=== PATIENT | female | born 1965 ===

== ENCOUNTER 2018-05-20 23:57 | Emergency (ER) | payer MEDICAID, OTHER ==
[2018-05-21 00:02] VITALS: BP 165/105; PULSE 100; RESP 16; TEMP 98; O2SAT 100
--- NOTE | 2018-05-21 01:19 | ED PDOC ---
HPI: Psych/Substance Abuse Time Seen by Provider: 05/21/18 00:20 Chief Complaint (Nursing): Psychiatric Evaluation Chief Complaint (Provider): Psychiatric Evaluation History Per: Patient, Family (daughter) History/Exam Limitations: no limitations Associated Symptoms: Depression Additional Complaint(s): 53 y/o female with history of depression and anxiety presenting to the ED for psychiatric evaluation. Patient is from [facility] and has been here for x2 months visiting her daughter. Patient reports she did not bring her psychiatric medications and is unaware of the names. Per daughter patient appears to be increasingly depressed and is unable to sleep. Patient denies homicidal or suicidal ideation as well as auditory or visual hallucinations. Patient and her daughter's main concern is to see a psychiatrist and get some sleep aide. Past Medical History Reviewed: Historical Data, Nursing Documentation, Vital Signs Vital Signs: Last Vital Signs Temp 98 F 05/20/18 23:59 Pulse 100 H 05/20/18 23:59 Resp 16 05/20/18 23:59 BP 165/105 H 05/20/18 23:59 Pulse Ox 100 05/20/18 23:59 - Medical History PMH: Anxiety, Depression, HTN - Surgical History Surgical History: Other surgeries: Tubal Ligation, Hysterectomy - Family History Family History: States: Unknown Family Hx - Social History Current smoker - smoking cessation education provided: No Alcohol: None Drugs: Denies - Home Medications Home Medications: Ambulatory Orders Medication Instructions Recorded hydrOXYzine Pamoate [Vistaril] 25 mg PO HS PRN #7 cap 05/21/18 - Allergies Allergies/Adverse Reactions: Allergies Allergy/AdvReac Type Severity Reaction Status Date / Time Penicillins Allergy RASH Verified 05/21/18 00:03 Review of Systems ROS Statement: Except As Marked, All Systems Reviewed And Found Negative Psych: Positive for: Depression. Negative for: Psychosis, Suicidal ideation Physical Exam - Reviewed Nursing Documentation Reviewed: Yes Vital Signs Reviewed: Yes - Physical Exam Appears: Positive for: Well, Non-toxic, No Acute Distress Head Exam: Positive for: ATRAUMATIC, NORMAL INSPECTION, NORMOCEPHALIC Skin: Positive for: Normal Color, Warm, DRY Eye Exam: Positive for: EOMI, Normal appearance, PERRL ENT: Positive for: Normal ENT Inspection Neck: Positive for: Normal, Painless ROM Cardiovascular/Chest: Positive for: Regular Rate, Rhythm. Negative for: Murmur Respiratory: Positive for: Normal Breath Sounds. Negative for: Respiratory Distress Gastrointestinal/Abdominal: Positive for: Normal Exam, Soft. Negative for: Tenderness Back: Positive for: Normal Inspection Extremity: Positive for: Normal ROM. Negative for: Pedal Edema, Deformity Neurological/Psych: Positive for: Awake, Alert, Normal Tone, Mood/Affect (flat). Negative for: Motor/Sensory Deficits - ECG O2 Sat by Pulse Oximetry: 100 (RA) Pulse Ox Interpretation: Normal Medical Decision Making Medical Decision Making: Time: 00:20 Impression: 53 y/o with insomnia in setting of depression Initial Plan: * Crisis evaluation 01:24 Patient was cleared by crisis. Diagnosis is depression. Will be discharged home. Scribe Attestation: Documented by Dion Horner, acting as a scribe Maria L Gamez MD. Provider Scribe Attestation: All medical record entries made by the Scribe were at my direction and personally dictated by me. I have reviewed the chart and agree that the record accurately reflects my personal performance of the history, physical exam, medical decision making, and the department course for this patient. I have also personally directed, reviewed, and agree with the discharge instructions and disposition. Disposition - Clinical Impression Clinical Impression: Depression, Insomnia - Patient ED Disposition Is Patient to be Admitted: No - Disposition Disposition: Routine/Home Disposition Time: 01:24 Condition: STABLE Additional Instructions: ARMIN RODRIGUEZ, thank you for letting us take care of you today. Your provider was Wyatt Gamez MD and you were treated for PSYCH EVAL. The emergency medical care you received today was directed at your acute symptoms. If you were prescribed any medication, please fill it and take as directed. It may take several days for your symptoms to resolve. Return to the Emergency Department if your symptoms worsen, do not improve, or if you have any other problems. Please contact your doctor or call one of the physicians/clinics you have been referred to that are listed on the Patient Visit Information form that is included in your discharge packet. Bring any paperwork you were given at discharge with you along with any medications you are taking to your follow up visit. Our treatment cannot replace ongoing medical care by a primary care provider outside of the emergency department. Thank you for allowing the [facility] team to be part of your care today. If you had an X-Ray or CT scan: A Radiologist will review the ED reading if any change in treatment is needed we will contact you. If you had a blood, urine, or wound culture: It will take several days for the results, if any change in treatment is needed we will contact you. If you had an STI test: It will take 48 hours for the results. Please call after 1 week if you have not heard back. Prescriptions: hydrOXYzine Pamoate [Vistaril] 25 mg PO HS PRN #7 cap PRN Reason: for insomnia Instructions: Depression Forms: [employer] (Serbian) Print Language: ESTONIAN
== END 2018-05-21 01:50 | disposition home or self-care (01) ==
LOC: H.ER 23:57
DX: F32.9 Major depressive disorder, single episode, unspecified (principal); I10 Essential (primary) hypertension; Z88.0 Allergy status to penicillin; Z86.59 Personal history of other mental and behavioral disorders; Z00.8 Encounter for other general examination
CPT/HCPCS: 99282; Q0177

== ENCOUNTER 2018-05-26 20:32 | Inpatient (IN) | payer MEDICAID, OTHER ==
--- NOTE | 2018-05-26 21:10 | ED PDOC ---
HPI: Psych/Substance Abuse Time Seen by Provider: 05/26/18 21:00 Chief Complaint (Nursing): Psychiatric Evaluation Chief Complaint (Provider): psychiatric evaluation History Per: Family History/Exam Limitations: no limitations Onset/Duration Of Symptoms: Days Current Symptoms Are (Timing): Still Present Associated Symptoms: denies: Suicidal Thoughts Additional Complaint(s): Chrissy Villatoro is a 53 year old female, with a past medical history of psychiatric illness, who presents to the emergency department accompanied by family members for psychiatric evaluation. Family members report that patient arrived from [facility] x2 months ago where she was receiving a treatment of Altavista Carbonate 200mg, Lamotrigine 100mg and Olanzapine 10mg. Family states that patient forgot her medication at home and hasn't been sleeping for x2 days. Patient was seen here last week and was given Benadryl but with no benefit. Patient has a scheduled appointment with psychiatrist at [facility] in [place] on June 04 but family is requesting a medication to help her sleep due to concern of child at home. Patient denies any suicidal or homicidal ideation. No further medical complaints. PMD: None provided. Past Medical History Reviewed: Historical Data, Nursing Documentation, Vital Signs Vital Signs: Last Vital Signs Temp 98.7 F 05/26/18 20:33 Pulse 89 05/26/18 20:33 Resp 16 05/26/18 20:33 BP 150/95 H 05/26/18 20:33 Pulse Ox 100 05/26/18 20:33 - Medical History PMH: Anxiety, Depression, HTN Denies: Diabetes, Hepatitis, HIV, Seizures, Sexually Transmitted Disease - Surgical History Surgical History: - Family History Family History: States: Unknown Family Hx - Living Arrangements Living Arrangements: With Family - Home Medications Home Medications: Ambulatory Orders Medication Instructions Recorded hydrOXYzine Pamoate [Vistaril] 25 mg PO HS PRN #7 cap 05/21/18 - Allergies Allergies/Adverse Reactions: Allergies Allergy/AdvReac Type Severity Reaction Status Date / Time Penicillins Allergy RASH Verified 05/21/18 00:03 Review of Systems ROS Statement: Except As Marked, All Systems Reviewed And Found Negative Psych: Positive for: Other (insomnia). Negative for: Suicidal ideation (or homicidal ideation) Physical Exam - Reviewed Nursing Documentation Reviewed: Yes Vital Signs Reviewed: Yes - Physical Exam Appears: Positive for: No Acute Distress Head Exam: Positive for: ATRAUMATIC, NORMAL INSPECTION, NORMOCEPHALIC Skin: Positive for: Normal Color, Warm, Dry Eye Exam: Positive for: Normal appearance, EOMI, PERRL Neck: Positive for: Normal, Painless ROM Cardiovascular/Chest: Positive for: Regular Rate, Rhythm. Negative for: Murmur Respiratory: Positive for: Normal Breath Sounds. Negative for: Respiratory Distress Gastrointestinal/Abdominal: Positive for: Normal Exam, Soft. Negative for: Tenderness Back: Positive for: Normal Inspection Extremity: Positive for: Normal ROM (upper and lower extremities). Negative for: Deformity Neurological/Psych: Positive for: Awake, Alert, Normal Tone, Oriented - ECG O2 Sat by Pulse Oximetry: 100 (RA) Pulse Ox Interpretation: Normal - Progress ED Course And Treament: SEEN BY CRISIS D/W HERNAN VAZQUEZ ADMIT TO DR. GONZALEZ DIAGNOSIS BIPOLAR DISORDER. Medical Decision Making Medical Decision Making: Time: 21:00 Initial Impression: Psychiatric evaluation Initial Plan: --Reevaluation Scribe Attestation: Documented by Sumanth Man, acting as a scribe for Jaqueline Mane PA-C. Provider Scribe Attestation: All medical record entries made by the Scribe were at my direction and personally dictated by me. I have reviewed the chart and agree that the record accurately reflects my personal performance of the history, physical exam, medical decision making, and the department course for this patient. I have also personally directed, reviewed, and agree with the discharge instructions and disposition. Disposition - Clinical Impression Clinical Impression: Bipolar disorder - Patient ED Disposition Is Patient to be Admitted: Yes - Disposition Disposition Time: 23:17 Condition: FAIR Instructions: Bipolar Disorder (DC)
--- NOTE | 2018-05-27 00:06 | ED PDOC ---
- Laboratory Results Result Diagrams: 05/27/18 00:10 05/27/18 00:10 - ECG O2 Sat by Pulse Oximetry: 100 (RA) Medical Decision Making Medical Decision Making: Patient endorsed to me by AXEL Mane pending labs results. WBCs 14K, U/A: LE large, slightly cloudy, nitrate negative, WBCs 3K, patient denies dysuria, urinary frequency or abdominal pain. Macrobid 100mg PO x 1 ordered Pt is medically stable for psychiatric admission. Disposition Discussed With : Elkin Mosher - Clinical Impression Clinical Impression: Bipolar disorder - POA Present On Arrival: None - Disposition Disposition: Admitted as In-Patient Disposition Time: 01:15 Condition: FAIR
[2018-05-27 00:19] LABS: BASO # 0.1 K/uL (0.0-0.2); BASO % 0.4 % (0.0-2.0); EOS # 0.1 K/uL (0.0-0.7); EOS % 0.7 % (0.0-4.0); HEMOGLOBIN 13.9 g/dL (12.0-16.0); LYMPH # 3.1 K/uL (1.0-4.3); LYMPH % 20.9 % (20.0-40.0); MEAN CORPUSCULAR HEMOGLOBIN 31.4 pg (27.0-31.0); MEAN CORPUSCULAR HGB CONC 33.8 g/dL (33.0-37.0); MEAN PLATELET VOLUME 7.7 fl (7.2-11.7); MONO # 0.8 K/uL (0.0-0.8); MONO % 5.7 % (0.0-10.0); NEUT # 10.6 K/uL (1.8-7.0); NEUT % 72.3 % (50.0-75.0); NRBC % 0.1 % (0.0-0.0); RBC 4.43 Mil/uL (3.80-5.20); RED CELL DISTRIBUTION WIDTH 12.5 % (11.5-14.5); WHITE BLOOD COUNT 14.7 K/uL (4.8-10.8)
[2018-05-27 00:23] LABS: SQUAMOUS EPITHIAL 3 /hpf (0-5); URINE BACTERIA RARE (<OCC); URINE BILIRUBIN NEGATIVE (NEGATIVE); URINE BLOOD NEGATIVE (NEGATIVE); URINE CLARITY SLIGHTY-CLOUDY (Clear); URINE COLOR YELLOW (YELLOW); URINE GLUCOSE (UA) NEG (NEGATIVE); URINE LEUKOCYTE ESTERASE LARGE Leu/uL (Negative); URINE PROTEIN NEGATIVE (NEGATIVE); URINE UROBILINOGEN 0.2-1.0 mg/dL (0.2-1.0)
[2018-05-27 00:38] LABS: BARBITURATES, UR NEGATIVE (NEGATIVE); BENZODIAZEPINES, UR NEGATIVE (NEGATIVE); OPIATES, UR NEGATIVE (NEGATIVE); PHENCYCLIDINE, UR NEGATIVE (NEGATIVE)
[2018-05-27 00:40] LABS: ALB/GLOB RATIO 1.3 (1.0-2.1); ALBUMIN 4.9 g/dL (3.5-5.0); ALT/SGPT 27 U/L (9-52); AST/SGOT 24 U/L (14-36); BLOOD UREA NITROGEN 13 mg/dl (7-17); CALCIUM 10.5 mg/dL (8.4-10.2); GFR NON-AFRICAN AMERICAN > 60
[2018-05-27] MEDS ORDERED: Magnesium Hydroxide Susp 30 ml UD PO PRN (03:02)
[2018-05-27] MEDS ORDERED: DiphenhydrAMINE 50 mg/ml Inj IM PRN (03:02)
--- NOTE | 2018-05-27 03:52 | PCM.BM ---
<Anna Felder P - Last Filed: 05/27/18 03:54> Treatment Plan Problems - Problems identified on initial assessmt Anxiety Date Initiated: 05/27/18 Time Initiated: 03:51 Assessment reference: NA Status: Active Altered Sleep Patterns Date Initiated: 05/27/18 Time Initiated: 03:51 Assessment reference: NA Status: Active Medication non adherence Date Initiated: 05/27/18 Time Initiated: 03:51 Assessment reference: NA Status: Active Treatment assets and liabiliti Patient Assests: ADL independent, physically healthy, negotiates basic needs, cognitively intact Patient Liabilities: medical problems (med noncompliance), language/speech, other (med non) - Milieu Protocol Maintain good personal hygiene: daily Encourage regular showers, daily Remind patient to perform daily oral care, daily Assist patient to perform ADL's Conduct patient checks and document Observation sheet: Q15 minutes Maintain personal safety: every shift Educate patient to report safety concerns to staff, every shift Monitor environment for contraband/sharps Medication safety: Monitor for expected outcome, potential side effects: every shift, Assess barriers to learning: every shift, Assess readiness for medication education: every shift <Natasha Quintanilla - Last Filed: 05/30/18 13:33> Treatment assets and liabiliti Patient Assests: adapts well, cooperative, educated (Pt. reports having a [employer] education. Pt. reports discontinuing studies to help provide for family.), resourceful, self-reliant, good support system (Pt. reports having a loving and supportive relationship with children. Pt. reports occasional communication with siblings in [place] ( 4 sisters ; 3 brothers).), negotiates basic needs, good past tx response, cognitively intact Patient Liabilities: language/speech (Pt. primarily hong konger speaking ), other Family Contact Family involvement: Family/SO is involved Family contact: Patient agrees to contact, Family has been contacted by patient, Telephone contact initiated by staff Family contact name: Heather(daughter)([phone]) Family contact comment: Billiard Player placed call to pts daughter to discuss pts presentation on 3NP, collect further collateral, and address any family concerns. Billiard Player provided clinical updates regarding pts presentation of 3NP this morning (thought blocking, paranoia, confusion, and initial refusal of medications). Pts daughter reported having spoken to earlier today and that pt. was able to explain to daughter that she needed to be given medication this morning and was able to carry out a short conversation. Billiard Player provided psychoeducation regarding nature of tx provided on 3NP and importance of adherence with appropriate aftercare. Pts daughter expressed understanding of the above and denied having other concerns. Billiard Player to continue providing clinical updates regarding pts progress and discharge planning. - Goals for Treatment Patient goals for treatment: Patient to continue stabilization on 3NP through medication management and group/supportive therapy to address sxs of depression as exhibited by thought blocking, sleep disturbances, and paranoia. Patient to be encouraged to attend groups regularly to promote self-awareness, reality testing, and improve insight, compliance, coping skills and self-esteem. Patient to be provided with referral for appropriate level of aftercare to reduce risk of future hospitalizations and ensure safety in the community. Pt. identified improvement in sleep and being discharged home as primary tx goals. Discharge/Continuing Care - Education Needs Education Needs: Family Medication, Family Diagnosis/Disease Process, Family Community resources, Family Aftercare Safety Plan, Patient Medication, Patient Diagnosis/Disease Process, Patient Coping Skills, Patient Community resources, Patient Aftercare Safety Plan - Discharge Discharge Criteria: Tolerates medication w/o severe side effects, Free of Suicidal thoughts, Free of paranoid thoughts, Free of agitation, Normal sleep pattern, Ability to care for self, Reduction of target symptoms (thought blocking) Discharge to:: Home, With Family - Treatment Team Participation Patient/Family/SO Statement: 05/30/18 13:38 Pt. attended tx team this morning to discuss progress on 3NP and tx goals. Pt. presented with significantly less thought blocking and was better able to engage in discussion with tx team. Affect more congruent to mood, although pt. smiles inappropriately at times. Pt. presents as internally preoccupied but denies AH/VH/delusions. Pt. reports improvement in sxs since admission as exhibited by improvement in energy/motivation/sleep. Pt. continues to deny having experienced sxs of depression or anxiety prior to admission, identifying reason for hospitalization as lack of sleep. Pt. suspicious on approach and guarded but to a lesser degree than upon admission. Pt. discharged focused, requesting to be discharged today. Psychoeducation regarding importance or proper stabilization and adherence with aftercare provided. Pt. superficially motivated for tx and ambivalent towards aftercare but receptive to feedback. Recommended medication changes discussed at length. Pt. agreeable. Insight into precursors to hospitalization, illness, and need for tx remains limited. Pt. visible on 3NP and observed socializing appropriately with select peers. Staff availability e mphasized. Pt. denied SI/HI, was able to contract for safety on 3NP, and expressed feeling safe on 3NP. Discussed with Family/SO: Yes Was Patient/Family/SO present at Treatment Team Meeting: Yes <Vel Mclean - Last Filed: 05/30/18 14:14> - Diagnosis (1) Bipolar disorder Status: Acute Interventions: 05/30/18 14:14 mood stabilizer/ risperidone (2) UTI (urinary tract infection) Status: Acute Interventions: 05/30/18 14:14 anti biotics/ internal medicine consult
--- NOTE | 2018-05-27 11:38 | RAD ---
Date of service: 05/26/2018 HISTORY: ROUTINE COMPARISON: No prior. TECHNIQUE: 1 view obtained. FINDINGS: LUNGS: No active pulmonary disease. PLEURA: No significant pleural effusion identified, no pneumothorax apparent. CARDIOVASCULAR: No aortic atherosclerotic calcification present. Normal cardiac size. No pulmonary vascular congestion. OSSEOUS STRUCTURES: No significant abnormalities. VISUALIZED UPPER ABDOMEN: Normal. OTHER FINDINGS: None. IMPRESSION: No active disease.
--- NOTE | 2018-05-27 11:49 | CP.PCM.CON ---
History of Present Illness - History of Present Illness History of Present Illness: 53 yo female with psyche history admitted to psyche unit because worsening depression. Review of Systems - Review of Systems All systems: reviewed and no additional remarkable complaints except (aside from those mentioned above, 12 point system review were negative by me) Past Patient History - Tetanus Immunizations Tetanus Immunization: Unknown - Past Social History Smoking Status: Never Smoked Chewing Tobacco Use: No Cigar Use: No Alcohol: None Drugs: Denies - CARDIAC Hx Hypertension: Yes - PULMONARY Hx Tuberculosis: No - NEUROLOGICAL HX Cerebrovascular Accident: No Hx Seizures: No - HEMATOLOGICAL/ONCOLOGICAL Hx Cancer: No Hx Human Immunodeficiency Virus (HIV): No - GENITOURINARY/GYNECOLOGICAL Hx Sexually Transmitted Disorders: No - PSYCHIATRIC Hx Bipolar Disorder: Yes (per report) Hx Substance Use: No - SURGICAL HISTORY Hx Surgeries: Yes Hx Section: Yes - ANESTHESIA Hx Anesthesia: Yes Hx Anesthesia Reactions: No Hx Malignant Hyperthermia: No Has any member of the family had a problem w/ anesthesia?: No Meds Allergies/Adverse Reactions: Allergies Allergy/AdvReac Type Severity Reaction Status Date / Time Penicillins Allergy RASH Verified 05/21/18 00:03 - Medications Medications: Current Medications Acetaminophen (Tylenol 325mg Tab) 650 mg PO Q4 PRN PRN Reason: pain level 4-7 Al Hydrox/Mg Hydrox/Simethicone (Maalox Plus 30 Ml) 30 ml PO Q4 PRN PRN Reason: Dyspepsia Diphenhydramine HCl (Benadryl) 50 mg IM Q6 PRN PRN Reason: Extrapyramidal S/S Unable PO Diphenhydramine HCl (Benadryl) 50 mg PO Q6 PRN PRN Reason: Extrapyramidal Symptoms Diphenhydramine HCl (Benadryl) 50 mg PO HS PRN PRN Reason: Sleep Haloperidol (Haldol) 5 mg PO Q4 PRN PRN Reason: Agitation Haloperidol Lactate (Haldol) 5 mg IM Q4 PRN PRN Reason: Agitation, Unable to Take PO Lorazepam (Ativan) 2 mg IM Q6H PRN PRN Reason: Anxiety/Agitation,Unable PO Lorazepam (Ativan) 1 mg PO Q6H PRN PRN Reason: Anxiety/Agitation Magnesium Hydroxide (Milk Of Magnesia) 30 ml PO HS PRN PRN Reason: Constipation Physical Exam - Constitutional Appears: No Acute Distress - Head Exam Head Exam: ATRAUMATIC - Eye Exam Eye Exam: absent: Scleral icterus - ENT Exam ENT Exam: Mucous Membranes Moist - Neck Exam Neck exam: Negative for: Meningismus - Respiratory Exam Respiratory Exam: absent: Rales, Rhonchi, Wheezes, Respiratory Distress - Cardiovascular Exam Cardiovascular Exam: REGULAR RHYTHM, +S1, +S2 - GI/Abdominal Exam GI & Abdominal Exam: Soft. absent: Tenderness - Rectal Exam Rectal Exam: Deferred - Neurological Exam Neurological exam: Alert, Oriented x3 - Psychiatric Exam Psychiatric exam: Normal Affect - Skin Skin Exam: Dry, Intact Results - Vital Signs Recent Vital Signs: Last Vital Signs Temp 98.2 F 05/27/18 09:00 Pulse 97 H 05/27/18 09:00 Resp 18 05/27/18 09:00 BP 155/102 H 05/27/18 09:00 Pulse Ox 100 05/27/18 07:13 - Labs Result Diagrams: 05/27/18 00:10 05/27/18 00:10 Labs: Laboratory Results - last 24 hr 05/27/18 05/27/18 05/27/18 00:10 00:10 00:10 WBC 14.7 H RBC 4.43 Hgb 13.9 Hct 41.2 MCV 93.0 MCH 31.4 H MCHC 33.8 RDW 12.5 Plt Count 394 MPV 7.7 Neut % (Auto) 72.3 Lymph % (Auto) 20.9 Glynn % (Auto) 5.7 Eos % (Auto) 0.7 Baso % (Auto) 0.4 Neut # (Auto) 10.6 H Lymph # (Auto) 3.1 Glynn # (Auto) 0.8 Eos # (Auto) 0.1 Baso # (Auto) 0.1 Sodium 142 Potassium 4.5 Chloride 101 Carbon Dioxide 27 Anion Gap 19 BUN 13 Creatinine 0.7 Est GFR ( Amer) > 60 Est GFR (Non-Af Amer) > 60 Random Glucose 112 H Calcium 10.5 H Total Bilirubin 0.4 AST 24 ALT 27 Alkaline Phosphatase 116 Total Protein 8.9 H Albumin 4.9 Globulin 3.9 Albumin/Globulin Ratio 1.3 Urine Color Urine Clarity Urine pH Ur Specific [place] Urine Protein Urine Glucose (UA) Urine Ketones Urine Blood Urine Nitrate Urine Bilirubin Urine Urobilinogen Ur Leukocyte Esterase Urine RBC (Auto) Urine Microscopic WBC Ur Squamous Epith Cells Urine Bacteria Urine Opiates Screen Negative Urine Methadone Screen Negative Ur Barbiturates Screen Negative Ur Phencyclidine Scrn Negative Ur Amphetamines Screen Negative U Benzodiazepines Scrn Negative U Oth Cocaine Metabols Negative U Cannabinoids Screen Negative Alcohol, Quantitative < 10 05/27/18 00:10 WBC RBC Hgb Hct MCV MCH MCHC RDW Plt Count MPV Neut % (Auto) Lymph % (Auto) Glynn % (Auto) Eos % (Auto) Baso % (Auto) Neut # (Auto) Lymph # (Auto) Glynn # (Auto) Eos # (Auto) Baso # (Auto) Sodium Potassium Chloride Carbon Dioxide Anion Gap BUN Creatinine Est GFR ( Amer) Est GFR (Non-Af Amer) Random Glucose Calcium Total Bilirubin AST ALT Alkaline Phosphatase Total Protein Albumin Globulin Albumin/Globulin Ratio Urine Color Yellow Urine Clarity Slighty-cloudy Urine pH 6.0 Ur Specific [place] 1.019 Urine Protein Negative Urine Glucose (UA) Neg Urine Ketones Negative Urine Blood Negative Urine Nitrate Negative Urine Bilirubin Negative Urine Urobilinogen 0.2-1.0 Ur Leukocyte Esterase Large Urine RBC (Auto) 1 Urine Microscopic WBC 3 Ur Squamous Epith Cells 3 Urine Bacteria Rare Urine Opiates Screen Urine Methadone Screen Ur Barbiturates Screen Ur Phencyclidine Scrn Ur Amphetamines Screen U Benzodiazepines Scrn U Oth Cocaine Metabols U Cannabinoids Screen Alcohol, Quantitative Assessment & Plan (1) Depression Status: Acute Comment: psyche is managing (2) UTI (urinary tract infection) Status: Acute Comment: urine C&S. Macrobid 100mg PO BID
--- NOTE | 2018-05-27 14:41 | PCM.PSYCH ---
Initial Psychiatric Evaluation - Initial Psychiatric Evaluation Type of Admission: Voluntary Chief Complaint (in patient's own words): may family brought to the hospital because for not sleeping Patient's Reaction to Hospitalization: signed in voluntary History of Present Illness and Precipitating Events: pt reportedly was living in youngest daughter reportedly family called ems because pt has not slept in 3 days reportedly was pacing at home became upset reported broke door does not recall why. [place]3 [place], [place] reportedly was diagnosed with ? bipolar. does not recall medication, does not admit to ever being inpt, denies suicidal ideation/attempts. reportedly pt was walking back and forth at [facility] home, reportedly was scaring daughter's children (pacing) Current Medications: Active Medications Generic Name Dose Route Start Last Admin Trade Name Freq PRN Reason Stop Dose Admin Acetaminophen 650 mg 05/27/18 03:02 Tylenol 325mg Tab PO Q4 PRN pain level 4-7 Al Hydrox/Mg Hydrox/Simethicone 30 ml 05/27/18 03:02 Maalox Plus 30 Ml PO Q4 PRN Dyspepsia Diphenhydramine HCl 50 mg 05/27/18 03:02 Benadryl IM Q6 PRN Extrapyramidal S/S Unable PO Diphenhydramine HCl 50 mg 05/27/18 03:02 Benadryl PO Q6 PRN Extrapyramidal Symptoms Diphenhydramine HCl 50 mg 05/27/18 03:05 Benadryl PO HS PRN Sleep Haloperidol 5 mg 05/27/18 03:02 Haldol PO Q4 PRN Agitation Haloperidol Lactate 5 mg 05/27/18 03:02 Haldol IM Q4 PRN Agitation, Unable to Take PO Lorazepam 2 mg 05/27/18 03:02 Ativan IM Q6H PRN Anxiety/Agitation,Unable PO Lorazepam 1 mg 05/27/18 03:02 Ativan PO Q6H PRN Anxiety/Agitation Magnesium Hydroxide 30 ml 05/27/18 03:02 Milk Of Magnesia PO HS PRN Constipation Nitrofurantoin Macrocrystals 100 mg 05/27/18 21:00 Macrobid PO Q12 JAMMIE Protocol Past Psychiatric History - Past Psychiatric History Prior Professional Help: opd in [facility] [place] defers recalling treatment History of Abuse: defers History of ETOH/Drug Use: defers History of Family Illness: defers Pertinent Medical Hx (Current Medical&Sleep Prob, Allergies): Allergies Allergy/AdvReac Type Severity Reaction Status Date / Time Penicillins Allergy RASH Verified 05/21/18 00:03 hydrOXYzine Pamoate [Vistaril] 25 mg PO HS PRN #7 cap 05/21/18 Home Med 0.5 tab PO DAILY 05/27/18 Review of Systems - Psychiatric Psychiatric: Abnormal Sleep Pattern, Irritability Mental Status Examination - Personal Presentation Personal Presentation: Looks older than stated age - Affect Affect: Constricted - Motor Activity Motor Activity: Psychomotor Retardation - Reliability in Providing Information Reliability in Providing Information: Fair - Speech Additional comments: under productive unless prompted - Mood Mood: Anxious - Formal Thought Process Formal Thought Process: No Impairment - Cognitive Functions Orientation: Person, Place, Situation Sensorium: Alert Attention/Concentration: Easily distracted Judgement: Imparied, as evidence by: Other Memory: Recent intact, as evidence by: Other - Risk Risk: Diminished functioning - Strength & Assets Inventory Additional comments: pt gives minimal detail but with prompting - Limitations Additional comments: speaks welsh, decreased insight DSM 5 DX - DSM 5 DSM 5 Diagnosis: bipolar I most recent episode manic with behavior changes - Recommended/Plan of Treatment Treatment Recommendations and Plan of Treatment: inpt adm per attending md prns per unit protocol vital signs and clinical observation per protocol and per clinical status hospitalist consult in welsh review seroquel possible shakes tremors increased weight sugar cholesteral possible suicidal ideaions pt verbally agreeable will start seroquel 25mg po hs team to obtain corroborative information am discharge planning in progess Projected ELOS: 5-7 days Prognosis: guarded Discharge Plan and Discharge Criteria: safety - Smoking Cessation Smoking Cessation Initiated: No Reason for not providing: defers
--- NOTE | 2018-05-27 16:35 | CARD ---
APPROVED REPORT Date of service: 05/26/2018 EKG Measurement Heart [id number] <Conclusion> Normal sinus rhythm Normal ECG
[2018-05-27 20:26] VITALS: O2SAT 98
[2018-05-28] MEDS: Haloperidol Lactate 2 mg/ml Liquid PO SCH ×2 (14:00→17:50)
--- NOTE | 2018-05-28 15:10 | PCM.PYCHPN ---
Psychiatric Progress Note - Psychiatric Progress Note Patient seen today, length of contact: pt evaluated discussed with team chart reviewed Patient Chief Complaint: I want to go to the dinning room Problems Identified/Issues Discussed: pt on evaluation, floridly psychotic, internally preoccupied responding to internal stimuli, smiling inappropriately, thought form tangential with loose association, limited insight, denied command hallucinations, denied suicidal or homicidal ideation DSM 5 Symptoms Update: bipolar I disorder MRE mixed severe with psychotic features delirium hyperactive due to UTI Medication Change: Yes (start haldol ) Medical Record Reviewed: Yes Mental Status Examination - Cognitive Function Orientation: Person, Place, Situation Attention: Poor Concentration: Poor Association: Loose Fund of Knowledge: Poor Decription of patient's judgement and insights: poor insight and judgment - Mood Mood: Anxious - Affect Affect: Broad Additional comments: labile - Speech Speech: Pressured - Formal Thought Process Formal Thought Process: Loosening of associations, Flight of ideas - Suicidal Ideation Suicidal Ideation: No - Homicidal Ideation Homicidal Ideation: No Goal/Treatment Plan - Goal/Treatment Plan Need for Continued Stay: Severe depression anxiety Progress Toward Problem(s) and Goals/Treatment Plan: start haldol 2mg tid/cogentin 1mg tid seroquel 100mg qhs internal medicine consult for UTI monitor pt for psychopharmacological effects and side effect profile
[2018-05-29 09:03] LABS: BASO % 0.4 % (0.0-2.0); EOS # 0.2 K/uL (0.0-0.7); EOS % 1.5 % (0.0-4.0); HEMOGLOBIN 14.3 g/dL (12.0-16.0); LYMPH # 2.5 K/uL (1.0-4.3); LYMPH % 23.6 % (20.0-40.0); MEAN CELL VOLUME 92.6 fl (81.0-99.0); MEAN CORPUSCULAR HEMOGLOBIN 31.4 pg (27.0-31.0); MEAN CORPUSCULAR HGB CONC 33.9 g/dL (33.0-37.0); MEAN PLATELET VOLUME 7.7 fl (7.2-11.7); MONO # 0.7 K/uL (0.0-0.8); MONO % 6.4 % (0.0-10.0); NEUT # 7.3 K/uL (1.8-7.0); NEUT % 68.1 % (50.0-75.0); NRBC % 0.1 % (0.0-0.0); RBC 4.55 Mil/uL (3.80-5.20); RED CELL DISTRIBUTION WIDTH 12.6 % (11.5-14.5); WHITE BLOOD COUNT 10.8 K/uL (4.8-10.8)
[2018-05-29] MEDS: Haloperidol Lactate 2 mg/ml Liquid PO SCH ×2 (10:18→13:46)
--- NOTE | 2018-05-29 14:17 | PCM.PYCHPN ---
Psychiatric Progress Note - Psychiatric Progress Note Patient seen today, length of contact: pt evaluated discussed with team chart reviewed Patient Chief Complaint: I was feeling bad and I do not know why Problems Identified/Issues Discussed: pt evalauted with translation, today presenting calmer, less irritable and less disorganized, continues to have under productive speech, guarded , internally preoccupied, denied command hallucinations, concrete thought process with limited insight into illness pt denied suicidal or homicidal ideation DSM 5 Symptoms Update: bipolar I DISORDER MIXED SEVERE WITH PSYCHOTIC FEATURES HYPERACTIVE DELIRIUM DUE TO UTI Medication Change: Yes (stat risperidone) Medical Record Reviewed: Yes Mental Status Examination - Cognitive Function Orientation: Person, Place, Situation Attention: Poor Concentration: Poor Association: Loose Fund of Knowledge: Poor Decription of patient's judgement and insights: poor insight and judgment - Mood Mood: Anxious - Affect Affect: Broad - Speech Speech: Pressured - Formal Thought Process Formal Thought Process: Loosening of associations, Flight of ideas - Suicidal Ideation Suicidal Ideation: No - Homicidal Ideation Homicidal Ideation: No Goal/Treatment Plan - Goal/Treatment Plan Need for Continued Stay: Severe depression anxiety Progress Toward Problem(s) and Goals/Treatment Plan: DISCONTINUE HALDOL start risperidone mtab 2mg qhs with cogentin 0.5mg qhs decrease seroquel to 50mg qhs monitor pt for psychopharmacological effects and side effect profile
[2018-05-29] MEDS: Risperidone M TAB 2 MG PO SCH (21:23)
[2018-05-29] MEDS ORDERED: Risperidone M TAB 2 MG PO SCH (22:00)
[2018-05-30] MEDS: Risperidone M tab 1 MG PO SCH (08:48)
[2018-05-30] MEDS: Alum-Mag Hydrox-Simethicone Susp (30 mL) PO PRN (12:39)
--- NOTE | 2018-05-30 14:27 | PCM.PYCHPN ---
Psychiatric Progress Note - Psychiatric Progress Note Patient seen today, length of contact: pt evaluated discussed with team chart reviewed Patient Chief Complaint: I want to go home Problems Identified/Issues Discussed: pt evaluated with treatment team, pt less disorganized, more cooperative, continues to have episodes of thought blocking and appears internally preoccupied, denied command hallucinations, concrete thought process with limited insight into illness pt denied suicidal or homicidal ideation DSM 5 Symptoms Update: bipolar I disorder mixed severe with psychotic features Medication Change: Yes (start remeron) Medical Record Reviewed: Yes Mental Status Examination - Cognitive Function Orientation: Person, Place, Situation Attention: Poor Concentration: Poor Association: Loose Fund of Knowledge: Poor Decription of patient's judgement and insights: poor insight and judgment - Mood Mood: Anxious - Affect Affect: Broad - Speech Speech: Pressured - Formal Thought Process Formal Thought Process: Loosening of associations, Flight of ideas - Suicidal Ideation Suicidal Ideation: No - Homicidal Ideation Homicidal Ideation: No Goal/Treatment Plan - Goal/Treatment Plan Need for Continued Stay: Severe depression anxiety Progress Toward Problem(s) and Goals/Treatment Plan: start risperidone mtab 2mg qhs with cogentin 0.5mg qhs, 1mg daily discontinue seroquel start remeron 7.5mg qhs monitor pt for psychopharmacological effects and side effect profile
[2018-05-30] MEDS: Risperidone M TAB 2 MG PO SCH (21:05)
[2018-05-31] MEDS: Risperidone M tab 1 MG PO SCH (09:00)
[2018-05-31] MEDS: Alum-Mag Hydrox-Simethicone Susp (30 mL) PO PRN (09:01)
[2018-05-31 10:18] VITALS: RESP 18
--- NOTE | 2018-05-31 15:06 | PCM.PYCHPN ---
Psychiatric Progress Note - Psychiatric Progress Note Patient seen today, length of contact: pt evaluated discussed with team chart reviewed Patient Chief Complaint: I slept better Problems Identified/Issues Discussed: pt evaluated . less irritable and less disorganized , presenting with concrete thought process and limited insight into illness , observed more interactive with other peers, no changes in sleep or appetite, denied command hallucinations, denied suicidal or homicidal ideation . no reported side effects of medications DSM 5 Symptoms Update: bipolar I disorder Medication Change: No Medical Record Reviewed: Yes Mental Status Examination - Cognitive Function Orientation: Person, Place, Situation Attention: Poor Concentration: Poor Association: Loose Fund of Knowledge: Poor Decription of patient's judgement and insights: poor insight and judgment - Mood Mood: Anxious - Affect Affect: Broad - Speech Speech: Appropriate, Pressured - Formal Thought Process Formal Thought Process: Circumstantial - Suicidal Ideation Suicidal Ideation: No - Homicidal Ideation Homicidal Ideation: No Goal/Treatment Plan - Goal/Treatment Plan Need for Continued Stay: Severe depression anxiety Progress Toward Problem(s) and Goals/Treatment Plan: risperidone mtab 2mg qhs with cogentin 0.5mg qhs, 1mg daily monitor pt for psychopharmacological effects and side effect profile
[2018-06-01 09:43] VITALS: TEMP 97.3
[2018-06-01 09:51] VITALS: BP 126/88; PULSE 108
--- NOTE | 2018-06-01 11:10 | PCM.PYCHDC ---
Mental Status Examination - Mental Status Examination Orientation: Person, Place, Situation Memory: Intact Mood: Neutral Affect: Broad Speech: Appropriate Attention: WNL Concentration: WNL Association: WNL Fund of Knowledge: WNL Formal Thought Process: Circumstantial Description of patient's judgement and insight: poor insight and judgment Psychotic Thoughts and Behaviors: pt on discharge denied any current psychotic symptoms, non elicited Suicidal Ideation: No Current Homicidal Ideation?: No Discharge Summary - Discharge Note Reason for Hospitalization: pt reportedly was living in youngest daughter reportedly family called ems because pt has not slept in 3 days reportedly was pacing at home became upset reported broke door does not recall why. [place] approx[place] 2[place]3 [place], [place] [place] reportedly was diagnosed with ? bipolar. does not recall medication, does not admit to ever being inpt, denies suicidal ideation/attempts. reportedly pt was walking back and forth at [facility] home, reportedly was scaring daughter's children (pacing) Consultations:: List each consultation separately and include: 1. Reason for request. 2. Findings. 3. Follow-up Summary of Hospital Course include:: 1. Description of specific treatment plan utilized for patients during their course of treatmen. 2. Summarize the time- course for resolution of acute symptoms and/or regressed behaviors. 3. Describe issues identified and worked on during hospitalization. 4. Describe medication utilized. 5. Describe medical problems identified and treated. 6. Reassessment of suicide risk Summary of Hospital Course: pt on admission was psychotic , internally preoccupied, pt was initially started on haldol which was cross tapered to risperidone pt also had UTI, and after internal medicine consult was started on antibiotics pt thought process gradually presented with clearing off of the psychotic symptoms pt was placed on remeron for depression and poor sleep, she gradually became compliant with treatment, no reported side effects of medications on discharge mental status was stable , pt denied any current suicidal or homicidal ideation denied perceptual disturbances, non elicited - Diagnosis (1) Bipolar disorder Current Visit: Yes Status: Acute (2) UTI (urinary tract infection) Current Visit: Yes Status: Acute - Final Diagnosis (DSM 5) Condition upon Discharge: FAIR DSM 5: bipolar I disorder MRE mixed severe with psychotic features Disposition: HOME/ ROUTINE Follow-up Treatment Plan: risperidone mtab 2mg qhs with cogentin 0.5mg qhs, 1mg daily monitor pt for psychopharmacological effects and side effect profile Prescriptions/Medication Reconciliation: amLODIPine [Norvasc] 5 mg PO DAILY 30 Days #30 tab Benztropine [Cogentin] 0.5 mg PO HS 30 Days #30 tab Mirtazapine [Remeron] 7.5 mg PO HS 30 Days #30 tab risperiDONE [RisperDAL Tab] 1 mg PO DAILY 30 Days #30 tab risperiDONE [RisperDAL Tab] 2 mg PO HS 30 Days #30 tab - Antipsychotic Medications Pt discharged on 2 or more routine antipsychotic medications: No
== END 2018-06-01 14:47 | disposition home or self-care (01) | DRG 753 ==
LOC: H.ER 20:32 → H.ERHOLD 23:18 → H.PSYCH 05-27 03:00
PROVIDERS: ADMIT Psychiatry & Neurology Psychiatry; ATTEND Psychiatry & Neurology Psychiatry
PROC: GZ3ZZZZ Medication Management (ICD-10-PCS; principal; 2018-05-26)
PROC: GZHZZZZ Group Psychotherapy (ICD-10-PCS; 2018-05-26)
PROC: GZ56ZZZ Individual Psychotherapy, Supportive (ICD-10-PCS; 2018-05-26)
DX: F31.64 Bipolar disorder, current episode mixed, severe, with psychotic features (principal); F05 Delirium due to known physiological condition; I10 Essential (primary) hypertension; N39.0 Urinary tract infection, site not specified; Z98.891 History of uterine scar from previous surgery; F41.9 Anxiety disorder, unspecified